=== PATIENT | male | born 1950 | race Caucasian/White ===

== ENCOUNTER → 2021-02-18 | Outpatient (CLI) | payer MEDICARE ==
--- NOTE | 2021-02-18 14:33 | US ---
EXAMINATION TYPE: US venous doppler duplex LE BI DATE OF EXAM: 02/18/2021 2:11 PM COMPARISON: NONE CLINICAL HISTORY: 71-year-old male R60.0 EDEMA. Adebayo LE edema; HT5'9.5; WT 300lb SIDE PERFORMED: Bilateral TECHNIQUE: The lower extremity deep venous system is examined utilizing real time linear array sonog eliana with graded compression, doppler sonography and color-flow sonography. FINDINGS: VESSELS IMAGED: Common Femoral Vein Deep Femoral Vein Greater Saphenous Vein * Femoral Vein Popliteal Vein Small Saphenous Vein * Proximal Calf Veins Posterior tibial veins (* superficial vessels) Right Leg: Negative for DVT Left Leg: Negative for DVT Wood Type Finisher notes: Bilateral ankle edema channels are noted by US. IMPRESSION: No evidence for DVT within the bilateral lower extremities. Prominent subcutaneous edema noted at the ankles.
== END | disposition home or self-care (01) ==
LOC: RADUSWWP 13:39
PROVIDERS: ATTEND Family Medicine
DX: R60.0 Localized edema (principal)
CPT/HCPCS: 93970

== ENCOUNTER → 2021-12-24 | Outpatient (CLI) | payer MEDICARE ==
--- NOTE | 2021-12-24 22:07 | CT ---
EXAMINATION TYPE: CT chest wo con DATE OF EXAM: 12/24/2021 INDICATION: SOB CT DLP: 634.40 mGy.cm Automated Exposure Control for Dose Reduction was Utilized. TECHNIQUE AND CONTRAST: CT scan of the chest without IV contrast administration. COMPARISON: No previous CT scan is available for comparison. 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 Minimal linear atelectasis seen in the lung bases. 3 mm nodule is see n at the lateral aspect of the right lower lobe (image #63, series 6). Grossly unremarkable lungs oth erwise. Patent central airways. No pleural or pericardial effusion. Mild cardiomegaly. Coronary and a rterial atherosclerotic calcifications. The ascending aorta measures 4 cm. The pulmonary trunk measures 3.4 cm, suggestive of pulmonary hyper tension. Subcentimeter mediastinal and axillary lymph nodes. No pathologically enlarged lymph nodes i n the chest. Grossly unremarkable upper abdomen. Degenerative changes of the thoracic spine. No aggre ssive bone lesion. IMPRESSION: 3 mm right lower lobe nodule requiring no further follow-up if low risk patient. If high risk patient , optional follow-up CT scan in 12 months can be considered. No other significant pulmonary abnormali ty identified. Dilated ascending aorta measuring up to 4 cm with dilated pulmonary trunk suggestive of pulmonary hyp ertension. Please correlate clinically. Other incidental findings as described above.
--- NOTE | 2021-12-25 12:39 | ECHOF ---
Referral Reason:J94.8 R06.09 MEASUREMENTS -------- HEIGHT: 175.3 cm WEIGHT: 136.1 kg BP: RVIDd: 3.4 cm (< 3.3) IVSd: 1.6 cm (0.6 - 1.1) LVIDd: 3.8 cm (3.9 - 5.3) LVPWd: 1.5 cm (0.6 - 1.1) IVSs: 2.3 cm LVIDs: 2.1 cm LVPWs: 2.2 cm LAESV Index (A-L): 34.44 ml/m Ao Diam: 3.0 cm (2.0 - 3.7) AV Cusp: 2.1 cm (1.5 - 2.6) LA Diam: 4.4 cm (2.7 - 3.8) MV E Jamarcus: 0.82 m/s MV DecT: 194 ms MV A Jamarcus: 0.89 m/s MV E/A Ratio: 0.91 RAP: 5.00 mmHg RVSP: 28.67 mmHg FINDINGS -------- Sinus rhythm. This was a technically adequate study. The left ventricular size is normal. There is moderate concentric left ventricular hypertrophy. O verall left ventricular systolic function is normal with, an EF between 55 - 60 %. The right ventricle is mildly enlarged. LA is moderately dilated 34-39 ml/m2 The right atrial size is normal. Interatrial and interventricular septum intact. There is mild aortic valve sclerosis. There is no evidence of aortic regurgitation. There is no e vidence of aortic stenosis. Mild mitral regurgitation is present. Mild tricuspid regurgitation present. There is no evidence of pulmonary hypertension. The right v entricular systolic pressure, as measured by Doppler, is 28.67mmHg. There is no pulmonic regurgitation present. The aortic root size is normal. IVC Not well visulized. Echo free space represents a pericardial fat pad. There is no pericardial effusion. CONCLUSIONS -------- 1. The left ventricular size is normal. 2. There is moderate concentric left ventricular hypertrophy. 3. Overall left ventricular systolic function is normal with, an EF between 55 - 60 %. 4. The right ventricle is mildly enlarged. 5. LA is moderately dilated 34-39 ml/m2 6. There is mild aortic valve sclerosis. 7. Mild mitral regurgitation is present. 8. Mild tricuspid regurgitation present. ULTRASOUND APPLICATIONS SPECIALIST: MARIBEL Rome
== END | disposition home or self-care (01) ==
LOC: RADECHMAIN 15:33
PROVIDERS: ATTEND Family Medicine
DX: R91.1 Solitary pulmonary nodule (principal); I77.810 Thoracic aortic ectasia; I28.8 Other diseases of pulmonary vessels; I08.3 Combined rheumatic disorders of mitral, aortic and tricuspid valves
CPT/HCPCS: 71250; 93306

== ENCOUNTER 2022-07-26 11:05 | Inpatient (IN) | payer MEDICARE ==
[2022-07-26] MEDS ORDERED: SODIUM CHLORIDE 0.9% 1,000 ML IV STA (11:47)
[2022-07-26 12:07] LABS: Basophils # (A) 0.1 k/uL (0-0.2); Basophils % (A) 1 %; Eosinophils # (A) 0.1 k/uL (0-0.7); Eosinophils % (A) 1 %; HGB 13.2 gm/dL (13.0-17.5); Lymphocytes # (A) 1.2 k/uL (1.0-4.8); Lymphocytes % (A) 17 %; MCH 30.8 pg (25.0-35.0); MCHC 36.5 g/dL (31.0-37.0); MCV 84.3 fL (80.0-100.0); Mean Platelet Volume 7.5; Monocytes # (A) 0.7 k/uL (0-1.0); Monocytes % (A) 9 %; Neutrophils # (A) 4.9 k/uL (1.3-7.7); Neutrophils % (A) 70 %; Platelet Count 187 k/uL (150-450); RBC 4.27 m/uL (4.30-5.90); RDW 12.6 % (11.5-15.5); WBC 7.1 k/uL (3.8-10.6)
--- NOTE | 2022-07-26 12:10 | ED ---
General Adult HPI - General Chief complaint: Recheck/Abnormal Lab/Rx Stated complaint: abn labs Time Seen by Provider: 07/26/22 11:25 Source: patient, RN notes reviewed Mode of arrival: ambulatory Limitations: no limitations - History of Present Illness Initial comments: Patient is a pleasant 72-year-old male presenting to the emergency department with concern for hyponatremia. Patient does admit to feeling fatigued over the past couple weeks with decreased appetite and decreased oral intake. Patient did have blood work done a couple weeks ago with sodium 133. Patient did have blood work done 2 days ago with sodium of 111. Patient was recently discontinued from multiple medications. Patient was on a diuretic prior to 5 days ago. - Related Data Allergies Allergy/AdvReac Type Severity Reaction Status Date / Time No Known Allergies Allergy Verified 07/26/22 11:22 Review of Systems ROS Statement: Those systems with pertinent positive or pertinent negative responses have been documented in the HPI. ROS Other: All systems not noted in ROS Statement are negative. Constitutional: Denies: fever Eyes: Denies: eye pain ENT: Denies: ear pain Respiratory: Denies: cough Cardiovascular: Denies: chest pain Endocrine: Reports: fatigue Gastrointestinal: Reports: as per HPI. Denies: abdominal pain Genitourinary: Denies: dysuria Musculoskeletal: Denies: back pain Skin: Denies: rash Neurological: Denies: weakness Past Medical History Past Medical History: Hyperlipidemia, Hypertension History of Any Multi-Drug Resistant Organisms: None Reported Past Surgical History: No Surgical Hx Reported Past Psychological History: No Psychological Hx Reported Smoking Status: Never smoker Past Alcohol Use History: Occasional Past Drug Use History: Marijuana General Exam Limitations: no limitations General appearance: alert, in no apparent distress Head exam: Present: normocephalic Eye exam: Present: normal appearance ENT exam: Present: normal oropharynx Neck exam: Present: normal inspection Respiratory exam: Present: normal lung sounds bilaterally Cardiovascular Exam: Present: regular rate, normal rhythm GI/Abdominal exam: Present: soft. Absent: tenderness Extremities exam: Present: normal inspection Neurological exam: Present: alert. Absent: motor sensory deficit Psychiatric exam: Present: normal affect, normal mood Skin exam: Present: normal color Course Vital Signs 07/26/22 11:20 Temperature 97.4 F L Pulse Rate 74 Respiratory 20 Rate Blood Pressure 125/62 O2 Sat by Pulse 96 Oximetry Medical Decision Making - Medical Decision Making Patient reevaluated. Patient and family updated. Case was discussed with Dr. Zaman, who will admit covering for Dr. Calloway. He will manage fluid - Lab Data Result diagrams: 07/26/22 12:00 07/26/22 12:00 Lab Results 07/26/22 07/26/22 07/26/22 Range/Units 12:00 12:00 12:00 WBC 7.1 (3.8-10.6) k/uL RBC 4.27 L (4.30-5.90) m/uL Hgb 13.2 (13.0-17.5) gm/dL Hct 36.0 L (39.0-53.0) % MCV 84.3 (80.0-100.0) fL MCH 30.8 (25.0-35.0) pg MCHC 36.5 (31.0-37.0) g/dL RDW 12.6 (11.5-15.5) % Plt Count 187 (150-450) k/uL MPV 7.5 Neutrophils % 70 % Lymphocytes % 17 % Monocytes % 9 % Eosinophils % 1 % Basophils % 1 % Neutrophils # 4.9 (1.3-7.7) k/uL Lymphocytes # 1.2 (1.0-4.8) k/uL Monocytes # 0.7 (0-1.0) k/uL Eosinophils # 0.1 (0-0.7) k/uL Basophils # 0.1 (0-0.2) k/uL PT 9.9 (9.0-12.0) sec INR 0.9 (<1.2) APTT 23.2 (22.0-30.0) sec Sodium (137-145) mmol/L Potassium (3.5-5.1) mmol/L Chloride (98-107) mmol/L Carbon Dioxide (22-30) mmol/L Anion Gap mmol/L BUN (9-20) mg/dL Creatinine (0.66-1.25) mg/dL Est GFR (CKD-EPI)AfAm (>60 ml/min/1.73 sqM) Est GFR (CKD-EPI)NonAf (>60 ml/min/1.73 sqM) Glucose (74-99) mg/dL Plasma Lactic Acid Nadeem (0.7-2.0) mmol/L Calcium (8.4-10.2) mg/dL Phosphorus (2.5-4.5) mg/dL Magnesium (1.6-2.3) mg/dL Total Bilirubin (0.2-1.3) mg/dL AST (17-59) U/L ALT (4-49) U/L Alkaline Phosphatase (38-126) U/L Total Protein (6.3-8.2) g/dL Albumin (3.5-5.0) g/dL Free T4 (0.78-2.19) ng/dL Free T3 pg/mL (2.8-5.3) pg/ml Urine Color Yellow Urine Appearance Clear (Clear) Urine pH 6.0 (5.0-8.0) Ur Specific [employer] [place] 1.005 (1.001-1.035) Urine Protein Negative (Negative) Urine Glucose (UA) Negative (Negative) Urine Ketones Negative (Negative) Urine Blood Negative (Negative) Urine Nitrite Negative (Negative) Urine Bilirubin Negative (Negative) Urine Urobilinogen <2.0 (<2.0) mg/dL Ur Leukocyte Esterase Negative (Negative) Urine Osmolality (50-1400) mosm/kg 07/26/22 07/26/22 07/26/22 Range/Units 12:00 12:00 12:00 WBC (3.8-10.6) k/uL RBC (4.30-5.90) m/uL Hgb (13.0-17.5) gm/dL Hct (39.0-53.0) % MCV (80.0-100.0) fL MCH (25.0-35.0) pg MCHC (31.0-37.0) g/dL RDW (11.5-15.5) % Plt Count (150-450) k/uL MPV Neutrophils % % Lymphocytes % % Monocytes % % Eosinophils % % Basophils % % Neutrophils # (1.3-7.7) k/uL Lymphocytes # (1.0-4.8) k/uL Monocytes # (0-1.0) k/uL Eosinophils # (0-0.7) k/uL Basophils # (0-0.2) k/uL PT (9.0-12.0) sec INR (<1.2) APTT (22.0-30.0) sec Sodium 118 L* (137-145) mmol/L Potassium 3.9 (3.5-5.1) mmol/L Chloride 82 L (98-107) mmol/L Carbon Dioxide 29 (22-30) mmol/L Anion Gap 7 mmol/L BUN 10 (9-20) mg/dL Creatinine 0.91 (0.66-1.25) mg/dL Est GFR (CKD-EPI)AfAm >90 (>60 ml/min/1.73 sqM) Est GFR (CKD-EPI)NonAf 83 (>60 ml/min/1.73 sqM) Glucose 104 H (74-99) mg/dL Plasma Lactic Acid Nadeem 1.1 (0.7-2.0) mmol/L Calcium 9.8 (8.4-10.2) mg/dL Phosphorus 3.4 (2.5-4.5) mg/dL Magnesium 1.4 L (1.6-2.3) mg/dL Total Bilirubin 0.9 (0.2-1.3) mg/dL AST 96 H (17-59) U/L ALT 90 H (4-49) U/L Alkaline Phosphatase 56 (38-126) U/L Total Protein 6.5 (6.3-8.2) g/dL Albumin 4.2 (3.5-5.0) g/dL Free T4 1.62 (0.78-2.19) ng/dL Free T3 pg/mL 4.0 (2.8-5.3) pg/ml Urine Color Urine Appearance (Clear) Urine pH (5.0-8.0) Ur Specific [employer] [place] (1.001-1.035) Urine Protein (Negative) Urine Glucose (UA) (Negative) Urine Ketones (Negative) Urine Blood (Negative) Urine Nitrite (Negative) Urine Bilirubin (Negative) Urine Urobilinogen (<2.0) mg/dL Ur Leukocyte Esterase (Negative) Urine Osmolality 188 (50-1400) mosm/kg - Radiology Data Radiology results: image reviewed (Chest x-ray also interpreted by myself shows no acute pulmonary disease.) Disposition Clinical Impression: Hyponatremia Disposition: ADMITTED IP TO THIS HOSP Is patient prescribed a controlled substance at d/c from ED?: No Referrals: Gerald Calloway MD [Primary Care Provider] - 1-2 days Time of Disposition: 12:42
[2022-07-26 12:14] LABS: Appearance,Urine Clear (Clear); Bilirubin,Urine Negative (Negative); Blood,Urine Negative (Negative); Color,Urine Yellow; Glucose,Urine (UA) Negative (Negative); Ketones,Urine Negative (Negative); Leukocyte Esterase,Urine Negative (Negative); Nitrite,Urine Negative (Negative); Protein,Urine Negative (Negative); Specific Gravity,Urine 1.005 (1.001-1.035); Urobilinogen,Urine <2.0 mg/dL (<2.0)
[2022-07-26 12:18] LABS: ALT 90 U/L (4-49); AST 96 U/L (17-59); African American GFR (CKD) >90 (>60 ml/min/1.73 sqM); Albumin 4.2 g/dL (3.5-5.0); Alkaline Phosphatase 56 U/L (38-126); Anion Gap 7 mmol/L; Blood Urea Nitrogen 10 mg/dL (9-20); Calcium 9.8 mg/dL (8.4-10.2); Carbon Dioxide 29 mmol/L (22-30); Chloride 82 mmol/L (98-107); Glucose 104 mg/dL (74-99); Magnesium 1.4 mg/dL (1.6-2.3); Non-African American GFR(CKD) 83 (>60 ml/min/1.73 sqM); Phosphorus 3.4 mg/dL (2.5-4.5); Potassium 3.9 mmol/L (3.5-5.1); Total Bilirubin 0.9 mg/dL (0.2-1.3); Total Protein 6.5 g/dL (6.3-8.2)
[2022-07-26 12:23] LABS: Sodium 118 mmol/L (137-145)
--- NOTE | 2022-07-26 12:25 | XR ---
EXAMINATION TYPE: XR chest 2V DATE OF EXAM: 07/26/2022 COMPARISON: NONE HISTORY: Shortness of breath TECHNIQUE: Frontal and lateral views of the chest are obtained. FINDINGS: Scattered senescent parenchymal changes noted. Hyperinflation compatible with COPD. No evidence for infiltrate. No evidence for atelectasis. Heart size is stable. Mediastinal structures are stable and grossly unremarkable. No evidence for hilar prominence. Degenerative changes dorsal spine. IMPRESSION: 1. No evidence for acute pulmonary disease.
[2022-07-26 12:30] LABS: INR 0.9 (<1.2); Prothrombin Time 9.9 sec (9.0-12.0)
[2022-07-26 12:31] LABS: Partial Thromboplastin Time 23.2 sec (22.0-30.0)
[2022-07-26 12:35] LABS: T4, Free (Free Thyroxine) 1.62 ng/dL (0.78-2.19)
[2022-07-26] MEDS ORDERED: MAGNESIUM OXIDE 400 MG TAB PO STA (12:39)
[2022-07-26] MEDS ORDERED: NALOXONE 0.4 MG/ML 1 ML VIAL IV PRN (12:42)
[2022-07-26] MEDS ORDERED: SODIUM CHLORIDE 0.9% 1,000 ML IV SCH (12:45)
[2022-07-26] MEDS ORDERED: LORazepam 1 MG/0.5 ML VIAL IV PRN ×3 (14:40)
[2022-07-26] MEDS ORDERED: LORazepam 1 MG TAB PO PRN (14:40)
[2022-07-26] MEDS ORDERED: THIAMINE 100 MG/ML 2 ML VIAL IM STA (14:40)
--- NOTE | 2022-07-26 15:28 | P.HPIM ---
History of Present Illness H&P Date: 07/26/22 Chief Complaint: weakness Patient is a 71-year-old male with history of chronic lymphedema, and alcohol dependence presented with abnormal lab findings. About 2 weeks ago, patient was seen in his primary care clinic for routine blood work. At that time there was concern about a worsening renal function. Diuretics were discontinued. The other medication changes made over the last 1 week as well. Currently patient is not taking any medications at all. He had repeat blood work on Wednesday, and today the result showed sodium level of underdeveloped. He was called by his primary care office to go to the emergency. Per patient, he has had reduced appetite over the last couple weeks. However, he denies any chest pain, shortness of breath, abdominal pain, nausea, vomiting, constipation, or urinary complaints. He does occasionally have loose stools, normally 2 bowel movements per day. He denies any sick contacts or travel history. He currently drinks about 4-6 of 12 ounce beers, and half pint of whiskey per day. He has not had withdrawal symptoms in the past. His last drink was yesterday. He denies any cigarette smoking, and occasionally smokes marijuana. In the ED, his vital signs were unremarkable. Laboratory workup showed sodium of 118, chloride 82, glucose 104, osmolality 247, lactate 1.1, magnesium 1.4, mildly elevated AST and OTTO in the 90s, normal TSH and low urine osmolality. Chest x-ray showed no acute process. EKG showed sinus rhythm with first-degree AV block. Patient seen and examined at bedside. Pertinent positives and negatives as discussed in HPI, a complete review of systems was performed and all other systems are negative. Vital signs reviewed General: nontoxic, no distress, appears at stated age Derm: warm, dry Head: atraumatic, normocephalic, symmetric Eyes: EOMI, no lid lag, anicteric sclera, pupils equal round reactive to light ENT: Nose and ears atraumatic Neck: No thyromegaly, supple Mouth: no lip lesion, mucus membranes moist Cardiovascular: S1S2 reg, no murmur Lungs: clear to auscultation bilateral, no rhonchi, no rales, no wheeze, no accessory muscle use Abdominal: soft, nontender to palpation, no guarding, no appreciable organomegaly Ext: no gross muscle atrophy, muscle strength muscle strength 5 out of 5 in all 4 extremities, no contractures, edematous extremities, Nonpitting Neuro: CN II-XII grossly intact Psych: Alert, oriented, appropriate affect Assessment/Plan: Euvolemic severe hyponatremia Alcohol abuse Transaminitis -Mentation normal -Likely secondary to beer potomania -Low serum osmolality, low urine osmolality, urine sodium pending -BMP q6h, avoid overcorrection -TSH normal -Hold off IV fluids -CIWA protocol, thiamine and folic acid Hypomagnesemia -Replete and monitor Chronic lymphedema -Currently not taking any diuretics First-degree AV block - monitor Generalized weakness -PT/OT Patient was also previously taking anticoagulation, unsure for what indication The patient is admitted with an anticipated greater than 2 midnight stay for evaluation of hyponatremia. Surrogate decision-maker: CODE STATUS: Full code DVT prophylaxis: Lovenox Anticipated discharge date: 07/[address]: home A total of 55 minutes was spent on the care of this complex patient more than 50% of the time was spent in counseling and care coordination. Past Medical History Past Medical History: Hyperlipidemia, Hypertension History of Any Multi-Drug Resistant Organisms: None Reported Past Surgical History: No Surgical Hx Reported Past Psychological History: No Psychological Hx Reported Smoking Status: Never smoker Past Alcohol Use History: Occasional Past Drug Use History: Marijuana Medications and Allergies Allergies Allergy/AdvReac Type Severity Reaction Status Date / Time No Known Allergies Allergy Verified 07/26/22 11:22 Physical Exam Vitals: Vital Signs Temp Pulse Resp BP Pulse Ox 07/26/22 14:25 73 18 119/55 97 07/26/22 11:20 97.4 F L 74 20 125/62 96 Intake and Output 07/26/22 07/26/22 07/26/22 06:59 14:59 22:59 Other: Weight 126.552 kg Results CBC & Chem 7: 07/26/22 12:00 07/26/22 12:00 Labs: Abnormal Lab Results - Last 24 Hours (Table) 07/26/22 07/26/22 07/26/22 Range/Units 12:00 12:00 12:00 RBC 4.27 L (4.30-5.90) m/uL Hct 36.0 L (39.0-53.0) % Sodium 118 L* (137-145) mmol/L Chloride 82 L (98-107) mmol/L Glucose 104 H (74-99) mg/dL Osmolality 247 L* (280-301) mosm/kg Magnesium 1.4 L (1.6-2.3) mg/dL AST 96 H (17-59) U/L ALT 90 H (4-49) U/L
[2022-07-26 15:49] LABS: African American GFR (CKD) >90 (>60 ml/min/1.73 sqM); Alcohol <10 mg/dL; Anion Gap 7 mmol/L; Blood Urea Nitrogen 10 mg/dL (9-20); Calcium 9.4 mg/dL (8.4-10.2); Carbon Dioxide 28 mmol/L (22-30); Chloride 83 mmol/L (98-107); Glucose 104 mg/dL (74-99); Non-African American GFR(CKD) 87 (>60 ml/min/1.73 sqM); Potassium 4.1 mmol/L (3.5-5.1)
[2022-07-26 15:54] LABS: Sodium 118 mmol/L (137-145)
[2022-07-26] MEDS: FOLIC ACID 1 MG TAB PO SCH (17:34)
[2022-07-26 22:09] LABS: African American GFR (CKD) >90 (>60 ml/min/1.73 sqM); Anion Gap 3 mmol/L; Blood Urea Nitrogen 13 mg/dL (9-20); Calcium 9.4 mg/dL (8.4-10.2); Carbon Dioxide 30 mmol/L (22-30); Chloride 85 mmol/L (98-107); Glucose 119 mg/dL (74-99); Non-African American GFR(CKD) 83 (>60 ml/min/1.73 sqM); Potassium 3.9 mmol/L (3.5-5.1)
[2022-07-26 22:19] LABS: Sodium 118 mmol/L (137-145)
[2022-07-27 03:58] VITALS: RESP 16
[2022-07-27 05:51] LABS: African American GFR (CKD) 81 (>60 ml/min/1.73 sqM); Anion Gap 8 mmol/L; Blood Urea Nitrogen 14 mg/dL (9-20); Calcium 9.8 mg/dL (8.4-10.2); Carbon Dioxide 27 mmol/L (22-30); Chloride 86 mmol/L (98-107); Glucose 136 mg/dL (74-99); Non-African American GFR(CKD) 70 (>60 ml/min/1.73 sqM); Potassium 4.1 mmol/L (3.5-5.1); Sodium 121 mmol/L (137-145)
[2022-07-27] MEDS: FOLIC ACID 1 MG TAB PO SCH (08:41)
[2022-07-27] MEDS ORDERED: THIAMINE 100 MG TAB PO SCH (09:00)
[2022-07-27] MEDS ORDERED: ENOXAPARIN 40 MG/0.4 ML SYRINGE SQ SCH (09:00)
[2022-07-27 09:44] LABS: African American GFR (CKD) 86.2 (60.0-200.0); Anion Gap 9.5 mmol/L (10.00-18.00); BUN/Creat Ratio 11.8 Ratio (12.00-20.00); Blood Urea Nitrogen 11.8 mg/dL (9.0-27.0); Calcium 9.8 mg/dL (8.7-10.3); Carbon Dioxide 26.5 mmol/L (20.0-27.5); Magnesium 1.7 mg/dL (1.5-2.4); Non-African American GFR(CKD) 74.3 (60.0-200.0); Potassium 3.8 mmol/L (3.5-5.5)
[2022-07-27 14:07] VITALS: BP 115/65; PULSE 76; TEMP 98.3
[2022-07-27 14:44] LABS: African American GFR (CKD) 78 (>60 ml/min/1.73 sqM); Anion Gap 6 mmol/L; Blood Urea Nitrogen 15 mg/dL (9-20); Calcium 9.6 mg/dL (8.4-10.2); Carbon Dioxide 30 mmol/L (22-30); Chloride 86 mmol/L (98-107); Glucose 132 mg/dL (74-99); Non-African American GFR(CKD) 67 (>60 ml/min/1.73 sqM); Potassium 3.6 mmol/L (3.5-5.1); Sodium 122 mmol/L (137-145)
--- NOTE | 2022-07-27 15:15 | P.DS ---
Providers Date of admission: 07/26/22 12:43 Expected date of discharge: 07/27/22 Attending physician: Omid Rock MD Primary care physician: Gerald Calloway [facility] Course: Discharge Diagnosis: Euvolemic severe hyponatremia Alcohol abuse Transaminitis Hypomagnesemia Chronic lymphedema First-degree AV block Generalized weakness Hospital Course: 71-year-old male with history of chronic lymphedema, and alcohol dependence presented with abnormal lab findings. About 2 weeks ago, patient was seen in his primary care clinic for routine blood work. At that time there was concern about a worsening renal function. Diuretics were discontinued. The other medication changes made over the last 1 week as well. Currently patient is not taking any medications at all. He had repeat blood work on 07/22, and the result showed sodium level of 111. He currently drinks about 4-6 of 12 ounce beers, and half pint of whiskey per day. On initial presentation in the ED, his vital signs were unremarkable. Laboratory workup showed sodium of 118, chloride 82, glucose 104, osmolality 247, lactate 1.1, magnesium 1.4, mildly elevated AST and OTTO in the 90s, normal TSH and low urine osmolality. Chest x-ray showed no acut e process. EKG showed sinus rhythm with first-degree AV block. Magnesium was repleted. Hyponatremia likely secondary to excessive alcohol use. Fluids were discontinued. TSH was normal. Sodium improved. Patient was also monitored on CIWA protocol, given thiamine and folic acid. Extensive discussions were conducted with the patient regarding alcohol cessation. Patient does not want alcohol rehab or alcoholic anonymous. Patient seen and examined at bedside. Vital signs reviewed and stable. General: nontoxic, no distress, appears at stated age Derm: warm, dry Head: atraumatic, normocephalic, symmetric Eyes: EOMI, no lid lag, anicteric sclera Mouth: no lip lesion, mucus membranes moist Cardiovascular: S1S2 reg, no murmur Lungs: CTA bilateral, no rhonchi, no rales , no accessory muscle use Abdominal: soft, nontender to palpation, no guarding, no appreciable organomegaly Ext: no gross muscle atrophy, no edema, no contractures Neuro: CN II-XI grossly intact, no focal neuro deficits Psych: Alert, oriented, appropriate affect A total of 42 minutes of time were spent preparing this complex discharge summary. Patient was discharged on 07/27/22 at 15:14. Patient Condition at Discharge: Stable Plan - Discharge Summary New Discharge Prescriptions: New Thiamine [Vitamin B-1] 100 mg PO DAILY #30 tab Folic Acid 1 mg PO DAILY #30 tab Discontinued amLODIPine BESYLATE/BENAZEPRIL [amLODIPine BESYLATE/BENAZEPRIL 10-40 mg] 1 cap PO DIRECTED Rivaroxaban [Xarelto] 2.5 mg PO DIRECTED Potassium Chloride ER [K-Dur 20] 20 meq PO DIRECTED Atorvastatin [Lipitor] 10 mg PO DIRECTED metOLazone [Zaroxolyn] 5 mg PO DIRECTED Furosemide [Lasix] 40 mg PO DIRECTED Discharge Medication List Folic Acid 1 mg PO DAILY #30 tab 07/27/22 [Rx] Thiamine [Vitamin B-1] 100 mg PO DAILY #30 tab 07/27/22 [Rx] Follow up Appointment(s)/Referral(s): Gerald Calloway MD [Primary Care Provider] - 1-2 days Patient Instructions/Handouts: Hyponatremia (DC), Abuse of Alcohol (DC), Alcohol Withdrawal (DC) Activity/Diet/Wound Care/Special Instructions: Please seek further help for alcohol use. Your alcohol use is likely the cause of the low sodium. Please see your PCP in 1-2 days. Discharge Disposition: HOME SELF-CARE
== END 2022-07-27 17:12 | disposition home or self-care (01) | DRG 641 ==
LOC: EC 11:05 → 5NMEDONC 12:43
PROVIDERS: ADMIT Family Medicine; ATTEND Family Medicine
PROC: HZ2ZZZZ Detoxification Services for Substance Abuse Treatment (ICD-10-PCS; principal; 2022-07-26)
DX: E87.1 Hypo-osmolality and hyponatremia (principal); F10.10 Alcohol abuse, uncomplicated; E78.5 Hyperlipidemia, unspecified; E83.42 Hypomagnesemia; I10 Essential (primary) hypertension; I44.0 Atrioventricular block, first degree; I89.0 Lymphedema, not elsewhere classified; R53.1 Weakness; Z71.41 Alcohol abuse counseling and surveillance of alcoholic
CPT/HCPCS: 36415; 71046; 80048; 80053; 80320; 81003; 83605; 83735; 83930; 83935; 84100; 84300; 84439; 84443; 84481; 85025; 85610; 85730; 93005; 96360; 96361; 99285

== ENCOUNTER → 2022-08-25 | Outpatient (CLI) | payer MEDICARE ==
--- NOTE | 2022-08-26 16:55 | US ---
EXAMINATION TYPE: US carotid duplex BILAT DATE OF EXAM: 08/25/2022 COMPARISON: NONE CLINICAL HISTORY: E78.00 HYPERCHLSTROLEMIA, E55.9 VIT D, N52.9 ER DYSFUNCTION. Weakness, hypercholest erolemia TECHNIQUE: Carotid duplex ultrasound examination. Indirect Doppler criteria was utilized. FINDINGS: EXAM MEASUREMENTS: RIGHT: Peak Systolic Velocity (PSV) cm/sec ----- Right CCA: 77.2 ----- Right ICA: 65.0 ----- Right ECA: 82.6 ICA/CCA ratio: 0.8 RIGHT: End Diastole cm/sec ----- Right CCA: 13.1 ----- Right ICA: 8.5 ----- Right ECA: 8.0 LEFT: Peak Systolic Velocity (PSV) cm/sec ----- Left CCA: 89.4 ----- Left ICA: 80.3 ----- Left ECA: 80.9 ICA/CCA ratio: 0.9 LEFT: End Diastole cm/sec ----- Left CCA: 14.7 ----- Left ICA: 15.5 ----- Left ECA: 0.0 VERTEBRALS (direction of flow): Right Vertebral: Antegrade Left Vertebral: Unable to visualize Rhythm: Normal CHEMISTRY PHYSICS TEACHER NOTES: No significant stenosis seen within visualized portions, pt very difficult to scan due to heavy breathing, thick neck IMPRESSION: 1. No significant flow-limiting stenosis based on velocities. 2. Nonvisualization left vertebral artery. 3. There are limitations on the examination. Criteria for Assigning % of Stenosis / Diameter reduction (Estimation based on the indirect measurements of the internal carotid artery velocities (ICA PSV). 1. Normal (no stenosis)=ICA PSV < 125 cm/s: ratio < 2.0: ICA EDV<40 cm/s. 2. Less than 50% stenosis=ICA PSV < 125 cm/s: ratio < 2.0: ICA EDV<40 cm/s. 3. 50 to 69% stenosis=ICA PSV of 125 to 230 cm/s: ration 2.0 ? 4.0: ICA EDV 40-100 cm/s. 4. Greater than 70% stenosis to near occlusion= ICA PSV > 230 cm/s: ratio > 4.0: ICA EDV > 100 cm/s. 5. Near occlusion= ICA PSV velocities may be low or undetectable: variable ratio and ICA EDV. 6. Total occlusion=unable to detect flow.
== END | disposition home or self-care (01) ==
LOC: RADUSWWP 16:13
PROVIDERS: ATTEND Family Medicine
DX: N52.9 Male erectile dysfunction, unspecified (principal); I10 Essential (primary) hypertension; E55.9 Vitamin D deficiency, unspecified; E78.00 Pure hypercholesterolemia, unspecified
CPT/HCPCS: 93880

== ENCOUNTER → 2023-02-09 | Outpatient (CLI) | payer MEDICARE ==
--- NOTE | 2023-02-09 09:24 | CT ---
EXAMINATION TYPE: CT chest wo con DATE OF EXAM: 02/09/2023 COMPARISON: 12/24/2021 HISTORY: Multiple lung nodules CT DLP: [address] of the chest was performed with lung and mediastinal window settings submitted. The la ck of contrast limits evaluation of the vascular, mediastinal and parenchymal structures including th e upper abdomen. LUNGS: The lungs are clear and free of infiltrate. Stable 3 mm nodular density right lateral lung bas e image 47 sequence 5. No additional nodules seen. Linear basilar atelectasis or parenchymal scarring redemonstrated. No pleural effusion. No CT evidence of interstitial lung disease. MEDIASTINUM/NADIA: Ascending thoracic aorta demonstrates anterior-posterior measurement of 4 cm versus 4 cm previously. The heart is mildly enlarged. No evidence for mediastinal mass. No lymph nodes g reater than 1cm. UPPER ABDOMEN: No significant abnormality is seen. OTHER: No significant other abnormality. IMPRESSION: 1. Stable 3 mm nodular density right lower lobe. Stability over a 2 year timeframe should be documen juan radiographically. 2. Borderline aneurysmal dilatation ascending thoracic aorta is stable.
== END | disposition home or self-care (01) ==
LOC: RADCTMAIN 08:48
PROVIDERS: ATTEND Family Medicine
DX: I71.21 Aneurysm of the ascending aorta, without rupture (principal); R91.8 Other nonspecific abnormal finding of lung field
CPT/HCPCS: 71250

== ENCOUNTER → 2024-03-31 | Outpatient (CLI) | payer MEDICARE ==
--- NOTE | 2024-04-17 00:07 | P.PCN ---
Date of Procedure: 03/31/24 Operative Findings: Home sleep study report Date of service is 03/31/2024 Pertinent history This is a 74-year-old male patient morbidly obese was referred to me for evaluation of sleep apnea. The patient has an irregular sleep schedule. He is sleeping at various times and is taking multiple naps during the day. He has some issues with memory and concentration and has been diagnosed having dementia. He has chronic lower extremity edema. He drinks approximately 12 bottles of beer a day in addition to shots of whiskey on a daily basis. Feels chronically fatigued. He is currently sleeping on a recliner. He has mild COPD and chronic restrictive lung disease related to his obesity. Pertinent physical findings Patient has a body mass index of 43.7 Technical description This is a type III home sleep study. The Souqal[employer] system was used to complete this home sleep study. The total recording duration was 12 hours and the study started at 10:33 PM and ended at 10:33 AM. Note that the airflow signal was too small to determine accurately the respiratory events. The oxygen saturation evaluation was adequate and was measured for a total of 11 hours and 45 minutes. Results Mild nocturnal oxygen desaturation encountered during the study. Average pulse ox during sleep was 91% with a minimum pulse ox of 82%. Baseline pulse ox while awake was 93%. Note that the patient's calculated AHI was not reliable due to lack of a adequate airflow signal during this current home sleep study. Assessment Suspected sleep apnea, incomplete study due to lack of a reliable airflow signal Plan Suggest repeating the study.
== END ==
LOC: 3 N SLEEP 13:19
PROVIDERS: ATTEND Internal Medicine Critical Care Medicine
DX: G47.10 Hypersomnia, unspecified (principal); E66.01 Morbid (severe) obesity due to excess calories; F03.90 Unspecified dementia, unspecified severity, without behavioral disturbance, psychotic disturbance, mood disturbance, and anxiety; J44.9 Chronic obstructive pulmonary disease, unspecified; Z68.41 Body mass index [BMI] 40.0-44.9, adult

== ENCOUNTER → 2024-04-17 | Outpatient (CLI) | payer MEDICARE ==
--- NOTE | 2024-05-09 15:50 | US ---
Patient: Archie WrayPatricia Ordering Physician: Unknown, Unknown ID: [id number] Phone, Pager: Phone: N/ A Pager: N/A : 1950 Age/Gender: 74Y, M Primary Location: N/A Procedure: US venous doppler dup master LE BI Study Date: 04/17/2024 4:30:00 PM EXAMINATION TYPE: US venous doppler duplex LE BI DATE OF EXAM: 05/06/2024 3:45 PM COMPARISON: 02/18/2021 CLINICAL INDICATION: Edema SIDE PERFORMED: Bilateral TECHNIQUE: The lower extremity deep venous system is examined utilizing real time linear array sonog eliana with graded compression, doppler sonography and color-flow sonography. VESSELS IMAGED: Common Femoral Vein Deep Femoral Vein Greater Saphenous Vein * Femoral Vein Popliteal Vein Small Saphenous Vein * Proximal Calf Veins (* superficial vessels) Right Leg: Negative for DVT Left Leg: Negative for DVT IMPRESSION: Grayscale, color doppler, spectral doppler imaging performed of the deep veins of the lo wer extremities. There is normal flow, compressibility, vascular waveforms.
== END | disposition home or self-care (01) ==
LOC: RADUSWWP 16:21
PROVIDERS: ATTEND Internal Medicine
DX: R60.0 Localized edema (principal)
CPT/HCPCS: 93970

== ENCOUNTER 2024-08-02 11:56 | Day surgery (SDC) | payer MEDICARE ==
[2024-08-02 12:48] VITALS: TEMP 98.2
[2024-08-02] MEDS: LACTATED RINGERS 1,000 ML IV SCH (12:55)
[2024-08-02] MEDS: IV FLUID CONTINUATION 1,000 ML IV ONE (12:55)
[2024-08-02] MEDS ORDERED: PROPOFOL 10 MG/ML 20 ML VIAL IV ONE (13:06)
[2024-08-02] MEDS ORDERED: LIDOCAINE 1% INJ 10MG/ML (20 ML MDV) ONE (13:06)
--- NOTE | 2024-08-02 13:27 | P.PCN ---
Date of Procedure: 08/02/24 Procedure(s) Performed: BRIEF HISTORY: Patient is a 74-year-old pleasant white male scheduled for an elective colonoscopy as a part of screening for colon cancer. PROCEDURE PERFORMED: Colonoscopy snare polypectomy. PREOPERATIVE DIAGNOSIS: Screening for colon cancer. IV sedation per Anesthesia. PROCEDURE: After informed consent was obtained, the patient, was brought into the endoscopy unit. IV sedation was administered by Anesthesia under continuous monitoring. Digital rectal examination was normal. Initially the Olympus CF-160 flexible video colonoscope was then inserted in the rectum, gradually advanced into the cecum without any difficulty. Careful examination was performed as the scope was gradually being withdrawn. Ileocecal valve and the appendiceal orifice were visualized and appeared normal. Prep was excellent. Mucosa of the cecum, ascending colon, transverse colon, descending colon were normal. The sigmoid colon at 35 cm from anal verge there was a 2 cm thick pedunculated polyp removed by snare polypectomy. In the distal rectum there was a 5 mm polyp removed by snare polypectomy.. Retroflexion was performed in the rectum and no lesions were seen. The patient tolerated the procedure well. IMPRESSION: 2 cm pedunculated sigmoid colon polyp status post snare polypectomy 5 mm distal rectal polyp status post polypectomy RECOMMENDATIONS: Findings of this examination were discussed with the patient as well as his family. He was advised to follow-up with the biopsy results. If the biopsy reveals adenoma he can have repeat colonoscopy in 3 years..
[2024-08-02 13:53] VITALS: BP 130/72; PULSE 76; RESP 18
== END 2024-08-02 14:24 | disposition home or self-care (01) ==
LOC: ORWHC2ENDO 11:56
PROVIDERS: ATTEND Internal Medicine Gastroenterology
DX: Z12.11 Encounter for screening for malignant neoplasm of colon (principal); D12.5 Benign neoplasm of sigmoid colon; K62.1 Rectal polyp; K57.32 Diverticulitis of large intestine without perforation or abscess without bleeding; I10 Essential (primary) hypertension; E78.5 Hyperlipidemia, unspecified; G47.33 Obstructive sleep apnea (adult) (pediatric); F12.90 Cannabis use, unspecified, uncomplicated; I51.7 Cardiomegaly; I82.409 Acute embolism and thrombosis of unspecified deep veins of unspecified lower extremity; F32.A Depression, unspecified; F41.9 Anxiety disorder, unspecified; E66.01 Morbid (severe) obesity due to excess calories; Z68.31 Body mass index [BMI] 31.0-31.9, adult; Z88.8 Allergy status to other drugs, medicaments and biological substances; Z79.02 Long term (current) use of antithrombotics/antiplatelets; Z79.899 Other long term (current) drug therapy
CPT/HCPCS: 88305; 45385; J2003; J2704